=== PATIENT | male | born 1995 | race Caucasian/White ===

== ENCOUNTER 2017-05-02 08:36 | Emergency (ER) | payer SELFPAY ==
[~2017-05-02] VITALS: Wt 117.1 kg
[2017-05-02] MEDS ORDERED: HYDROCODONE/APAP (5/325) TAB PO ONE (10:00)
--- NOTE | 2017-05-02 10:20 | RADRPT ---
PROCEDURE: XR Wrist. CLINICAL INDICATION: Right wrist pain TECHNIQUE: AP, lateral and oblique views of the right wrist were performed. COMPARISON: No prior studies are available for comparison. FINDINGS: There is no acute fracture or dislocation. Alignment is normal. Joint spaces are preserved. Visualized soft tissues are grossly unremarkable. IMPRESSION: 1. No radiographic evidence of acute osseous abnormality of the right wrist. RPTAT: UU .Gm Her MD, MD Date Time Electronically viewed and signed by .Gm Her MD, on 05/02/2017 10:20 .K/
--- NOTE | 2017-05-02 10:21 | RADRPT ---
PROCEDURE: XR Forearm. CLINICAL INDICATION: Right forearm pain TECHNIQUE: 2 views of the right forearm were obtained. COMPARISON: No prior studies are available for comparison. FINDINGS: There is no evidence of acute fracture. Joint spaces are preserved. Soft tissues appear grossly unre markable. IMPRESSION: 1. Normal radiographs of the right forearm. RPTAT: UU .Gm Her MD, MD Date Time Electronically viewed and signed by .Gm Her MD, on 05/02/2017 10:21 .K/
--- NOTE | 2017-05-02 11:20 | ERD ---
ER Documentation Chief Complaint Chief Complaint right wrist pain HPI Otherwise healthy 21-year-old male presents with a chief complaint of right wrist pain 2 hours status post injury. Patient was shoveling when the shovel hit a rock his wrist began to hurt. Denies numbness, tingling, loss of range of motion. Has not taken any medications for the symptoms. No medical conditions including diabetes. No similar symptoms in the past. No recent travel. Patient has no other complaints and describes no other associated manifestations. Nursing notes have been reviewed and are consistent with history given. ROS All systems reviewed and are negative except as per history of present illness. Medications Home Meds No Active Prescriptions or Reported Meds Allergies Allergies: Coded Allergies: No Known Allergy (Unverified , 07/26/15) PMhx/Soc Medical and Surgical Hx: pt denies Medical Hx, pt denies Surgical Hx History of Surgery: No Anesthesia Reaction: No Hx Neurological Disorder: No Hx Respiratory Disorders: No Hx Cardiac Disorders: No Hx Psychiatric Problems: No Hx Miscellaneous Medical Probl: No Hx Alcohol Use: Yes Hx Substance Use: Yes (MARIJUANA) Hx Tobacco Use: Yes Smoking Status: Never smoker Physical Exam Vitals Vital Signs Date Time Temp Pulse Resp B/P Pulse Ox O2 Delivery O2 Flow Rate FiO2 05/02/17 08:37 98.1 78 18 135/78 5 Physical Exam Const: Overweight but otherwise well-appearing 21-year-old male in NAD Ext: Mild to moderate tenderness palpation of the lower right forearm just proximal to the radial styloid. No anatomical snuffbox tenderness. Left upper extremity unremarkable. No cyanosis, swelling or obvious deformity. Range of motion intact. Tendons intact. Skin: No petechiae or rashes Head: Atraumatic Eyes: Normal Conjunctiva. PERRLA, EOMI. Neck: Full range of motion..~ No meningismus. Resp: Equal chest expansion. No tripoding or use of accessory muscles. Cardio: Cap refill less than 2 seconds. Pulses 2+ bilaterally. Back: No midline or flank tenderness Neur: Awake and alert. Sensation intact. Psych: Normal Mood and Affect Results 24 hrs Current Medications Medications (Trade) Dose Ordered Sig/Kirt Route PRN Reason Start Time Stop Time Status Last Admin Dose Admin Acetaminophen/ Hydrocodone Bitart ([place] (5/325)) 1 tab ONCE ONCE PO 05/02/17 10:00 05/02/17 10:01 DC 05/02/17 09:43 Procedures/MDM 19-year-old male presenting to hours status post non-direct trauma to the right wrist as described in the history. X-rays obtained. Read by the radiologist is unremarkable. Physical exam remarkable only for mild to moderate tenderness of the lower right radius. I have no suspicion for bony pathology or neurovascular compromise. Most likely diagnosis is contusion. Patient has been educated and instructed to practice rice therapy. Have instructed for follow-up with PCP. I have spoke with the patient regarding their condition and future management. They have verbally responded that they understand their status and treatment plan. The patients vitals are stable, and their current condition is appropriate for discharge. The patient will be given discharge instructions with return precautions. Departure Diagnosis: Primary Impression: Wrist injury Encounter type: initial encounter Laterality: right Qualified Code: S69.91XA - Injury of right wrist, initial encounter Additional Impression: Pain in wrist Laterality: right Qualified Code: M25.531 - Right wrist pain Condition: Stable Patient Instructions: Contusion, Upper Extremity Additional Instructions: Follow up with your PCP within the next 1-3 days for a more thorough evaluation and a possible referral to a specialist. Return the the emergency department immediately if symptoms worsen or change. If you have any questions regarding medications, ask your pharmacist or us before you leave. If any adverse reactions occur while taking your medications, discontinue the treatment and return to the emergency department immediately. Take your medications as directed, and complete the entire course of treatment. PIYUSH ARMENTA PA-C May 02, 2017 11:20
[2017-05-02 11:29] VITALS: BP 143/83; PULSE 87; RESP 18; TEMP 98
== END 2017-05-02 11:31 | disposition home or self-care (01) ==
LOC: FTE 08:36
DX: S69.91XA Unspecified injury of right wrist, hand and finger(s), initial encounter (principal); W22.8XXA Striking against or struck by other objects, initial encounter; Y92.9 Unspecified place or not applicable